=== PATIENT | male | born 1975 | race Caucasian/White ===

== ENCOUNTER 2016-12-05 15:12 | Emergency (ER) | payer SELFPAY ==
[~2016-12-05] VITALS: Wt 75.7 kg
[~2016-12-05 15:12] MED LIST: ATARAX,VISTARIL50 MG PO; BENADRYL ALLERG25 M5 PO; CARBIDOPA/LEVOD1 TA1 PO; DAYPRO600 M1 PO; FLEXERIL10 MG PO; FLEXERIL5 MG PO; LORTAB 10/500 51 TA1 PO; MEDROL DOSEPAK4 MG PO; MOTRIN800 MG PO; NKHM; PEPCID40 MG PO; PREDNICOT20 MG PO; PREDNISONE10 MG PO; TRAMADOL HCL50 MG PO; VICODIN 5/500 505 MG PO; VICODIN 500 MG-1 TAB PO; VICODIN ES 7501 TAB PO; VICOPROFEN 7.51 TA1 PO; VOLTAREN50 M1 PO; VOLTAREN75 MG PO; ZOFRAN 4 MG ED2 TAB PO
[2016-12-05 16:02] LABS: BASO # 0.1 10*3/uL (0.0-0.1); BASO % 0.5 % (0.0-1.0); EOS # 0.2 10*3/uL (0.0-0.4); EOS % 1.5 % (1.0-4.0); HEMATOCRIT 45.7 % (42.0-52.0); HEMOGLOBIN 15.2 g/dl (14.0-18.0); IG # 0.1 10*3/uL (0.0-0.1); LYMPH # 2.5 10*3/uL (1.3-4.4); LYMPH % 16.1 % (27.0-41.0); MEAN CELL VOLUME 87.4 fl (80.0-94.0); MEAN CORPUSCULAR HGB 29.1 pg (27.0-31.0); MEAN CORPUSCULAR HGB CONC 33.3 g/dl (33.0-37.0); MEAN PLATELET VOLUME 9.7 fl (9.6-12.3); MONO # 1.5 10*3/uL (0.1-1.0); MONO % 9.7 % (3.0-9.0); NEUT % 71.9 % (47.0-73.0); PLATELET COUNT AUTOMATED 314 10*3/uL (130-400); RED BLOOD COUNT 5.23 10*6/uL (4.50-5.90); RED CELL DISTRI WIDTH 12.9 % (0-14.5); WHITE BLOOD COUNT 15.3 10*3/uL (4.8-10.8)
[2016-12-05 16:20] LABS: ALBUMIN 4.2 gm/dl (3.1-4.5); ALKALINE PHOSPHATASE 71 U/L (45-117); BILIRUBIN, TOTAL 0.4 mg/dl (0.2-1.0); BUN 28 mg/dl (7-24); CARBON DIOXIDE 30 mmol/L (21-32); CHLORIDE 102 mmol/L (98-107); EST GLOM FILT AFRICAN AMERICAN > 60 ml/min; GLUCOSE 85 mg/dL (65-99); POTASSIUM 4.3 mmol/L (3.5-5.1); SGOT/AST 34 IU/L (3-35); SGPT/ALT 27 U/L (12-78); SODIUM 137 mmol/L (136-145); TOTAL PROTEIN 7.7 gm/dL (6.4-8.2)
[2016-12-05 16:53] LABS: BILIRUBIN NEGATIVE (NEGATIVE); BLOOD NEGATIVE (NEGATIVE); CLARITY CLEAR (CLEAR); COLOR YELLOW (YELLOW); GLUCOSE NEGATIVE (NEGATIVE); KETONE NEGATIVE (NEGATIVE); LEUKO ESTERASE NEGATIVE (NEGATIVE); NITRITE NEGATIVE (NEGATIVE); PROTEIN NEGATIVE (NEGATIVE); UROBILINOGEN 0.2 E.U./dl (0.2-1.0)
[2016-12-05 17:01] LABS: URINE AMPHETAMINES < 1000 (1000ng/ml); URINE BARBITURATES < 200 (200ng/ml); URINE COCAINE > 300 (300ng/ml)
[2016-12-05 17:02] LABS: EPITHELIAL CELLS 0-2; RBC 0-2 rbc/hpf (0-2); URINE REFLEX COMMENT NO (NO); WBC 0-2 wbc/hpf (0-5)
[2016-12-05] MEDS ORDERED: CYCLOBENZAPRINE10 MG PO (18:03)
[2016-12-05] MEDS ORDERED: KETOROLAC10 MG PO (18:03)
[2016-12-06] MEDS ORDERED: Orphenadrine C100 MG PO (06:06)
[2016-12-06] MEDS ORDERED: PERCOCET 5-3251 EACH PO (06:06)
== END 2016-12-05 18:01 | disposition home or self-care (01) ==
LOC: ED 15:12
PROVIDERS: Physician Assistant
DX: M54.12 Radiculopathy, cervical region (principal); Z88.0 Allergy status to penicillin; Z88.8 Allergy status to other drugs, medicaments and biological substances

== ENCOUNTER 2016-12-06 04:22 | Emergency (ER) | payer MEDICAID ==
[~2016-12-06] VITALS: Ht 180.3 cm; Wt 77.1 kg
[~2016-12-06 04:22] MED LIST changes: +CYCLOBENZAPRINE10 MG PO; +KETOROLAC10 MG PO
[2016-12-06] MEDS ORDERED: Orphenadrine C100 MG PO (06:06)
[2016-12-06] MEDS ORDERED: PERCOCET 5-3251 EACH PO (06:06)
== END 2016-12-06 06:26 | disposition home or self-care (01) ==
LOC: ED 04:22
DX: M54.12 Radiculopathy, cervical region (principal); F14.10 Cocaine abuse, uncomplicated; F12.10 Cannabis abuse, uncomplicated; F11.10 Opioid abuse, uncomplicated; Z88.0 Allergy status to penicillin; Z88.8 Allergy status to other drugs, medicaments and biological substances

== ENCOUNTER 2016-12-12 09:24 | Emergency (ER) | payer MEDICAID ==
[~2016-12-12 09:24] MED LIST changes: +Orphenadrine C100 MG PO; +PERCOCET 5-3251 EACH PO
[2016-12-12 10:03] LABS: BASO % 0.1 % (0.0-1.0); HEMATOCRIT 45.5 % (42.0-52.0); HEMOGLOBIN 15.7 g/dl (14.0-18.0); LYMPH # 1.2 10*3/uL (1.3-4.4); LYMPH % 8.5 % (27.0-41.0); MEAN CORPUSCULAR HGB 29.3 pg (27.0-31.0); MEAN CORPUSCULAR HGB CONC 34.5 g/dl (33.0-37.0); MEAN PLATELET VOLUME 9.3 fl (9.6-12.3); MONO # 0.7 10*3/uL (0.1-1.0); MONO % 5.1 % (3.0-9.0); NEUT # 12.4 10*3/uL (2.3-7.9); NEUT % 85.6 % (47.0-73.0); PLATELET COUNT AUTOMATED 396 10*3/uL (130-400); RED BLOOD COUNT 5.35 10*6/uL (4.50-5.90); RED CELL DISTRI WIDTH 12.3 % (0-14.5); WHITE BLOOD COUNT 14.4 10*3/uL (4.8-10.8)
[2016-12-12 10:13] LABS: BUN 26 mg/dl (7-24); CHLORIDE 102 mmol/L (98-107); CREATININE 1.09 mg/dL (0.70-1.30); POTASSIUM 4.6 mmol/L (3.5-5.1); SODIUM 140 mmol/L (136-145)
[2016-12-12 10:55] LABS: URINE AMPHETAMINES < 1000 (1000ng/ml); URINE BARBITURATES < 200 (200ng/ml); URINE BENZODIAZEPINES < 200 (200ng/ml); URINE CANNABINOIDS (THC) < 50 (50ng/ml); URINE COCAINE < 300 (300ng/ml); URINE METHADONE < 300 (300ng/ml); URINE OPIATES < 300 (300ng/ml)
[2016-12-12 10:59] LABS: URINE PHENCYCLIDINE < 25 (25ng/ml)
[2016-12-12] MEDS ORDERED: NEURONTIN300 MG PO (13:50)
== END 2016-12-12 14:47 | disposition home or self-care (01) ==
LOC: ED 09:24
PROVIDERS: Emergency Medicine
DX: M50.222 Other cervical disc displacement at C5-C6 level (principal); G06.1 Intraspinal abscess and granuloma; M54.12 Radiculopathy, cervical region; F19.10 Other psychoactive substance abuse, uncomplicated; R63.0 Anorexia; M54.5 Low back pain; F11.10 Opioid abuse, uncomplicated; F12.10 Cannabis abuse, uncomplicated; F17.200 Nicotine dependence, unspecified, uncomplicated; Z88.0 Allergy status to penicillin; Z88.8 Allergy status to other drugs, medicaments and biological substances

== ENCOUNTER 2016-12-26 22:36 | Emergency (ER) | payer MEDICAID ==
[~2016-12-26] VITALS: Wt 61.2 kg
[~2016-12-26 22:36] MED LIST changes: +NEURONTIN300 MG PO
[2016-12-26] MEDS ORDERED: PREDNISONE10 MG PO (22:56)
[2016-12-26] MEDS ORDERED: VISTARIL50 MG PO (22:56)
== END 2016-12-26 23:20 | disposition home or self-care (01) ==
LOC: ED 22:36
DX: M54.12 Radiculopathy, cervical region (principal); F41.9 Anxiety disorder, unspecified; G47.00 Insomnia, unspecified; Z88.0 Allergy status to penicillin; Z88.8 Allergy status to other drugs, medicaments and biological substances

== ENCOUNTER 2019-05-03 14:43 | Inpatient (IN) | payer OTHER, MEDICAID ==
[~2019-05-03] VITALS: Ht 182.8 cm; Wt 74.1 kg
[~2019-05-03 14:43] MED LIST changes: +VISTARIL50 MG PO
--- NOTE | 2019-05-03 15:58 | NUR ---
PATIENT MEETS [facility]. CINA=[id number]. PATIENT IS UNDECIDED AT THIS TIME. PATIENT IS INTERESTED IN RESIDENTIAL TREATMENT. IN STAFF PROVIDED PATIENT WITH REFERRAL OPTIONS.IN STAFF WILL FOLLOW BACK UP WITH PATIENT. SIMON ONEAL B.A. RECORD LABEL INTERNSHIP
[2019-05-03 16:18] VITALS: BP 128/85
--- NOTE | 2019-05-03 16:18 | NUR ---
A 44, admitted to , under the services of RIC Stiles DO with a diagnosis of OPIATE WITHDRAWAL. Chief complaint is WITHDRAWAL S/S.. Patient arrived via ambulatory from [place]. Monitor applied. Initial assessment completed. Vital signs taken and recorded. RIC STILES DO notified of admission to the unit. Orders received. See assessment for past medical history, medications and allergies. Patient and/or family oriented to unit. [facility] visitation policy reviewed. Clothing/patient valuable form completed. MICHEL GOLDSMITH
[2019-05-03] MEDS ORDERED: BENADRYL ALLERG25 M5 PO (17:34)
--- NOTE | 2019-05-03 17:50 | NUR ---
DR PETERSEN NOTIFIED THAT PT MED REC IS UP TO DATE.
[2019-05-03 18:18] LABS: BASO # 0.1 10*3/uL (0.0-0.1); BASO % 0.6 % (0.0-1.0); EOS # 0.2 10*3/uL (0.0-0.4); EOS % 2.7 % (1.0-4.0); HEMATOCRIT 43.7 % (42.0-52.0); HEMOGLOBIN 14.5 g/dl (14.0-18.0); LYMPH # 2.1 10*3/uL (1.3-4.4); LYMPH % 27.8 % (27.0-41.0); MEAN CELL VOLUME 90.9 fl (80.0-94.0); MEAN CORPUSCULAR HGB 30.1 pg (27.0-31.0); MEAN CORPUSCULAR HGB CONC 33.2 g/dl (33.0-37.0); MEAN PLATELET VOLUME 9.5 fl (9.6-12.3); MONO # 0.4 10*3/uL (0.1-1.0); MONO % 5.6 % (3.0-9.0); NEUT # 4.8 10*3/uL (2.3-7.9); NEUT % 62.9 % (47.0-73.0); PLATELET COUNT AUTOMATED 271 10*3/uL (130-400); RED BLOOD COUNT 4.81 10*6/uL (4.50-5.90); RED CELL DISTRI WIDTH 12.3 % (0-14.5); WHITE BLOOD COUNT 7.7 10*3/uL (4.8-10.8)
[2019-05-03 18:19] LABS: BILIRUBIN NEGATIVE (NEGATIVE); BLOOD NEGATIVE (NEGATIVE); CLARITY CLEAR (CLEAR); COLOR YELLOW (YELLOW); GLUCOSE NEGATIVE (NEGATIVE); KETONE NEGATIVE (NEGATIVE); LEUKO ESTERASE NEGATIVE (NEGATIVE); NITRITE NEGATIVE (NEGATIVE); PH 5.5 (5.0-9.0); SPECIFIC GRAVITY >= 1.030 (1.005-1.030); UROBILINOGEN 0.2 E.U./dl (0.2-1.0)
[2019-05-03 18:27] LABS: URINE AMPHETAMINES < 1000 (1000ng/ml); URINE BARBITURATES < 200 (200ng/ml); URINE BENZODIAZEPINES < 200 (200ng/ml); URINE CANNABINOIDS (THC) < 50 (50ng/ml); URINE COCAINE > 300 (300ng/ml); URINE METHADONE < 300 (300ng/ml); URINE OPIATES > 300 (300ng/ml)
[2019-05-03 18:28] LABS: INTERNATIONAL NORM RATIO 0.9 (2.0-3.5)
[2019-05-03 18:28] LABS: URINE PHENCYCLIDINE < 25 (25ng/ml)
[2019-05-03 18:37] LABS: ALBUMIN 3.9 gm/dl (3.1-4.5); ALKALINE PHOSPHATASE 63 U/L (45-117); BUN 13 mg/dl (7-24); CHLORIDE 108 mmol/L (98-107); CREATININE 1.08 mg/dL (0.70-1.30); POTASSIUM 4.2 mmol/L (3.5-5.1); SGOT/AST 19 IU/L (3-35); SGPT/ALT 21 U/L (12-78); SODIUM 141 mmol/L (136-145)
[2019-05-03 18:40] LABS: ETHYL ALCOHOL < 3.0 mg/dl (<3)
--- NOTE | 2019-05-03 20:32 | NUR ---
PATIENT REQUESTING MEDICATION FOR MUSCLE ACHES, CRAMPING, AND ANXIETY. REQUIP, ROBAXIN, AND VISTARIL ADMINISTERED PRESCRIBED. WILL MONITOR FOR EFFECTIVENESS.
--- NOTE | 2019-05-03 21:32 | NUR ---
PATIENT RESTING WITH EYES CLOSED. RESPIRATIONS EASY AND UNLABORED. CALL LIGHT IN REACH. WILL MONITOR.
[2019-05-04] VITALS: BP 128/85
--- NOTE | 2019-05-04 | NUR ---
PATIENT REQUESTING MEDICATION FOR SLEEP. TRAZADONE ADMINISTEREDAS PRESCRIBED.WILL MONITOR FOR EFFECTIVENESS.
--- NOTE | 2019-05-04 01:00 | NUR ---
PATIENT RESTING WITH EYES CLOSED AT THIS TIME. RESPIRATION EASY AND UNLABORED. CALL LIGHT IN REACH. WILL MONITOR.
--- NOTE | 2019-05-04 04:47 | NUR ---
PATIENT MEDICATED WITH ROBAXIN FOR COMPLAINTS OF MUSCLE CRAMPS. WILL MONITOR FOR EFFECTIVENESS.
--- NOTE | 2019-05-04 05:57 | NUR ---
PATIENT RESTING WITH EYES CLOSED. RESPIRATIONS EASY AND UNLABORED. CALL LIGHT IN REACH. WILL MONITOR.
[2019-05-04 08:00] VITALS: BP 121/84
[2019-05-04 12:00] VITALS: BP 119/77
[2019-05-04 16:00] VITALS: BP 123/63
[2019-05-04 20:00] VITALS: BP 115/77
--- NOTE | 2019-05-04 21:44 | NUR ---
PATIENT REQUESTING MEDICATION FOR ANXIETY, MUSCLE ACHES, RESTLESSNESS, AND SLEEP. LIBRIUM, MOTRIN, REQUIP, ROBAXIN, AND TRAZODONE PRESCRIBED. WILL MONITOR FOR EFFECTIVENESS.
--- NOTE | 2019-05-04 22:43 | NUR ---
PATIENT RESTING WITH EYES CLOSED AT THIS TIME. RESPIRATIONS EASY AND UNLABORED. CALL LIGHT IN REACH. WILL MONITOR.
[2019-05-05] VITALS: BP 126/64
--- NOTE | 2019-05-05 01:15 | NUR ---
PATIENT REQUESTING MORE MEDICATION TO HELP HIM SLEEP. TRAZODONE ADMINISTERED PRESCRIBED. WILL MONITOR FOR EFFECTIVENESS.
--- NOTE | 2019-05-05 02:15 | NUR ---
PATIENT RESTING WITH EYES CLOSED AT THIS TIME. RESPIRATIONS EASY AND UNLABORED. CALL LIGHT IN REACH. WILL MONITOR.
--- NOTE | 2019-05-05 06:05 | NUR ---
24 HR chart check completed.
[2019-05-05 08:00] VITALS: BP 97/46
--- NOTE | 2019-05-05 10:00 | NUR ---
PATIENT REQUESTING MEDICATION FOR ANXIETY AND GENERAL ACHES. LIBRIUM AND MOTRIN ADMINISTERED PRESCRIBED. WILL MONITOR FOR EFFECTIVENESS.
--- NOTE | 2019-05-05 12:30 | NUR ---
Patient displaying withdrawal symptoms, including: irritability, anxiousness, restlessness and agitation. PRN medications provided, SEE EMAR. Will continue to monitor medication effectiveness.
--- NOTE | 2019-05-05 14:00 | NUR ---
Patient resting. Responding to scheduled medications with fewer complaints of pain and anxiety.
[2019-05-05 16:00] VITALS: BP 107/57
--- NOTE | 2019-05-05 19:33 | NUR ---
24 HR chart check completed.
[2019-05-05 20:00] VITALS: BP 129/78
--- NOTE | 2019-05-05 21:40 | NUR ---
PATIENT REQUESTING MEDICATION FOR ANXIETY, GENERAL ACHES, MUSCLE SPASMS, AND SLEEP. LIBRIUM, MOTRIN, ROBAXIN, AND TRAZODONE ADMINISTERED PRESCRIBED. WILL MONITOR FOR EFFECTIVENESS.
--- NOTE | 2019-05-05 22:40 | NUR ---
PATIENT LAYING IN BED WATCHING TV AT TIME. STATES THAT ANXIETY IS A LITTLE BETTER AT THIS TIME AND MUSCLE ACHES ARE BETTER. WILL MONITOR.
--- NOTE | 2019-05-05 23:00 | NUR ---
ASSUMED CARE FOR THIS PT AT THIS TIME. PT RESTING QUIETLY IN BED. NO S/S OF DISTRESS NOTED. CALL LIGHT IN REACH.
[2019-05-06] VITALS: BP 112/68
--- NOTE | 2019-05-06 06:17 | NUR ---
24 HR chart check completed.
[2019-05-06 06:23] LABS: BASO # 0.1 10*3/uL (0.0-0.1); BASO % 0.9 % (0.0-1.0); EOS # 0.6 10*3/uL (0.0-0.4); EOS % 8.6 % (1.0-4.0); HEMATOCRIT 43.2 % (42.0-52.0); HEMOGLOBIN 13.9 g/dl (14.0-18.0); LYMPH # 2.5 10*3/uL (1.3-4.4); LYMPH % 38.9 % (27.0-41.0); MEAN CELL VOLUME 92.1 fl (80.0-94.0); MEAN CORPUSCULAR HGB 29.6 pg (27.0-31.0); MEAN CORPUSCULAR HGB CONC 32.2 g/dl (33.0-37.0); MEAN PLATELET VOLUME 9.6 fl (9.6-12.3); MONO # 0.5 10*3/uL (0.1-1.0); MONO % 7.5 % (3.0-9.0); NEUT # 2.8 10*3/uL (2.3-7.9); NEUT % 43.8 % (47.0-73.0); PLATELET COUNT AUTOMATED 259 10*3/uL (130-400); RED BLOOD COUNT 4.69 10*6/uL (4.50-5.90); RED CELL DISTRI WIDTH 12.4 % (0-14.5); WHITE BLOOD COUNT 6.4 10*3/uL (4.8-10.8)
[2019-05-06 06:41] LABS: CREATININE 1.24 mg/dL (0.70-1.30)
[2019-05-06 08:00] VITALS: BP 110/76
[2019-05-06] MEDS ORDERED: ZOFRAN 4 MG ED2 TAB PO (10:15)
[2019-05-06] MEDS ORDERED: ATARAX,VISTARIL50 MG PO (10:15)
--- NOTE | 2019-05-06 11:03 | NUR ---
Patient discharged in stable condition, referral letter provided to patient with specific instructions and appointment for ongoing treatment. Patient verbalizes understanding of discharge plan.
== END 2019-05-06 11:03 | disposition home or self-care (01) | DRG 897 ==
LOC: 4E 14:43 → 5E 15:23
PROVIDERS: Student in an Organized Health Care Education/Training Program; ADMIT Emergency Medicine
DX: F11.23 Opioid dependence with withdrawal (principal); F12.10 Cannabis abuse, uncomplicated; F90.9 Attention-deficit hyperactivity disorder, unspecified type; F14.23 Cocaine dependence with withdrawal; M50.122 Cervical disc disorder at C5-C6 level with radiculopathy; F17.220 Nicotine dependence, chewing tobacco, uncomplicated; F31.9 Bipolar disorder, unspecified; E87.8 Other disorders of electrolyte and fluid balance, not elsewhere classified; G47.00 Insomnia, unspecified; F41.9 Anxiety disorder, unspecified; Z71.6 Tobacco abuse counseling; Z81.3 Family history of other psychoactive substance abuse and dependence; Z88.0 Allergy status to penicillin

== ENCOUNTER → 2019-06-20 | Outpatient (CLI) | payer OTHER | END | disposition home or self-care (01) | LOC: US 09:30 | DX: K40.31 Unilateral inguinal hernia, with obstruction, without gangrene, recurrent (principal) ==

== ENCOUNTER → 2019-11-27 | Outpatient (CLI) | payer OTHER | END | disposition home or self-care (01) | LOC: CARD 11:19 | DX: F11.20 Opioid dependence, uncomplicated (principal) ==

== ENCOUNTER 2020-02-20 14:11 | Emergency (ER) | payer OTHER ==
[~2020-02-20] VITALS: Ht 182.8 cm; Wt 95.3 kg
[2020-02-20 14:57] LABS: BASO # 0.1 10*3/uL (0.0-0.1); BASO % 0.6 % (0.0-1.0); EOS # 0.7 10*3/uL (0.0-0.4); EOS % 6.4 % (1.0-4.0); HEMATOCRIT 43.5 % (42.0-52.0); LYMPH # 1.5 10*3/uL (1.3-4.4); LYMPH % 14.3 % (27.0-41.0); MEAN CELL VOLUME 84.6 fl (80.0-94.0); MEAN PLATELET VOLUME 9.4 fl (9.6-12.3); MONO # 0.6 10*3/uL (0.1-1.0); MONO % 5.8 % (3.0-9.0); NEUT # 7.6 10*3/uL (2.3-7.9); NEUT % 71.9 % (47.0-73.0); PLATELET COUNT AUTOMATED 299 10*3/uL (130-400); RED BLOOD COUNT 5.14 10*6/uL (4.50-5.90); RED CELL DISTRI WIDTH 14.5 % (0-14.5); WHITE BLOOD COUNT 10.5 10*3/uL (4.8-10.8)
[2020-02-20 15:11] LABS: ALBUMIN 4.1 gm/dl (3.1-4.5); ALKALINE PHOSPHATASE 99 U/L (45-117); BUN 17 mg/dl (7-24); CHLORIDE 112 mmol/L (98-107); CREATININE 1.18 mg/dL (0.70-1.30); POTASSIUM 4.3 mmol/L (3.5-5.1); SGOT/AST 20 IU/L (3-35); SGPT/ALT 26 U/L (12-78); SODIUM 142 mmol/L (136-145); TOTAL PROTEIN 7.6 gm/dL (6.4-8.2)
== END 2020-02-20 18:30 | disposition home or self-care (01) ==
LOC: ED 14:11
PROVIDERS: Nurse Practitioner Family
DX: T65.91XA Toxic effect of unspecified substance, accidental (unintentional), initial encounter (principal); Z88.0 Allergy status to penicillin; Z79.899 Other long term (current) drug therapy; Y92.89 Other specified places as the place of occurrence of the external cause

== ENCOUNTER 2020-02-20 20:15 | Emergency (ER) | payer OTHER ==
[~2020-02-20] VITALS: Ht 182.8 cm; Wt 95.3 kg
== END 2020-02-20 21:30 ==
LOC: ED 20:15
DX: Z04.89 Encounter for examination and observation for other specified reasons (principal); Z53.21 Procedure and treatment not carried out due to patient leaving prior to being seen by health care provider

== ENCOUNTER 2020-05-05 11:13 | Emergency (ER) | payer OTHER ==
[~2020-05-05] VITALS: Ht 182.8 cm; Wt 95.3 kg
[2020-05-05] MEDS ORDERED: CYCLOBENZAPRINE10 MG PO (12:20)
[2020-05-05] MEDS ORDERED: NEURONTIN300 MG PO (12:20)
[2020-05-05] MEDS ORDERED: Motrin,Rufen800 MG PO (12:20)
== END 2020-05-05 12:29 | disposition home or self-care (01) ==
LOC: ED 11:13
DX: S13.9XXA Sprain of joints and ligaments of unspecified parts of neck, initial encounter (principal); M54.41 Lumbago with sciatica, right side; Z88.0 Allergy status to penicillin; X58.XXXA Exposure to other specified factors, initial encounter; Y93.89 Activity, other specified; Y92.89 Other specified places as the place of occurrence of the external cause; Y99.8 Other external cause status

== ENCOUNTER 2020-06-22 11:50 | Inpatient (IN) | payer OTHER ==
[~2020-06-22] VITALS: Ht 195.5 cm; Wt 90.2 kg
[~2020-06-22 11:50] MED LIST changes: +Motrin,Rufen800 MG PO
[2020-06-22 11:58] VITALS: BP 143/88
[2020-06-22 12:36] LABS: HEMATOCRIT 46.2 % (42.0-52.0); MEAN CELL VOLUME 86.2 fl (80.0-94.0); MEAN CORPUSCULAR HGB 27.6 pg (27.0-31.0); MEAN PLATELET VOLUME 9.4 fl (9.6-12.3); PLATELET COUNT AUTOMATED 423 10*3/uL (130-400); RED BLOOD COUNT 5.36 10*6/uL (4.50-5.90); RED CELL DISTRI WIDTH 13.6 % (0-14.5); WHITE BLOOD COUNT 18.5 10*3/uL (4.8-10.8)
[2020-06-22 12:59] LABS: TOTAL CELLS COUNTED 100 #CELLS
[2020-06-22 13:00] LABS: PLATELET SUFFICIENCY HIGH (NORMAL)
[2020-06-22 13:05] LABS: ALBUMIN 3.4 gm/dl (3.1-4.5); ALKALINE PHOSPHATASE 131 U/L (45-117); BUN 13 mg/dl (7-24); CHLORIDE 105 mmol/L (98-107); CREATININE 1.09 mg/dL (0.70-1.30); POTASSIUM 3.3 mmol/L (3.5-5.1); SGOT/AST 38 IU/L (3-35); SGPT/ALT 23 U/L (12-78); SODIUM 140 mmol/L (136-145); TOTAL PROTEIN 8.4 gm/dL (6.4-8.2)
[2020-06-22 15:30] VITALS: BP 133/89
[2020-06-22 16:00] VITALS: BP 134/78; BP 136/80
[2020-06-22 20:00] VITALS: BP 117/100
[2020-06-23] VITALS: BP 116/70
[2020-06-23 07:02] LABS: BASO % 0.2 % (0.0-1.0); EOS # 0.2 10*3/uL (0.0-0.4); EOS % 1.5 % (1.0-4.0); LYMPH # 0.9 10*3/uL (1.3-4.4); MEAN CELL VOLUME 86.6 fl (80.0-94.0); MEAN CORPUSCULAR HGB 27.9 pg (27.0-31.0); MEAN CORPUSCULAR HGB CONC 32.3 g/dl (33.0-37.0); MEAN PLATELET VOLUME 9.7 fl (9.6-12.3); MONO # 0.3 10*3/uL (0.1-1.0); NEUT # 14.1 10*3/uL (2.3-7.9); NEUT % 89.8 % (47.0-73.0); PLATELET COUNT AUTOMATED 370 10*3/uL (130-400); RED BLOOD COUNT 4.62 10*6/uL (4.50-5.90); RED CELL DISTRI WIDTH 13.8 % (0-14.5); WHITE BLOOD COUNT 15.7 10*3/uL (4.8-10.8)
[2020-06-23 07:34] LABS: CHLORIDE 107 mmol/L (98-107); POTASSIUM 4.1 mmol/L (3.5-5.1); SODIUM 138 mmol/L (136-145)
[2020-06-23 07:52] LABS: ALBUMIN 2.6 gm/dl (3.1-4.5); ALKALINE PHOSPHATASE 115 U/L (45-117); BUN 10 mg/dl (7-24); CHOLESTEROL 157 mg/dL (<200); CREATININE 0.86 mg/dL (0.70-1.30); FREE T4 1.13 ng/dl (0.76-1.46); HDL CHOLESTEROL 46 mg/dl (40-60); LDL CHOLESTEROL 93 mg/dL (9-159); SGOT/AST 30 IU/L (3-35); SGPT/ALT 20 U/L (12-78); THYROID STIM HORMONE (HS) 0.099 uIU/ml (0.358-4.75); TRIGLYCERIDES 91 mg/dl (<150); VLDL CHOLESTEROL 18 mg/dL (6-40)
[2020-06-23 07:56] LABS: VITAMIN D, 25-HYDROXY 32.4 ng/mL (30-100)
[2020-06-23 08:00] VITALS: BP 135/86
[2020-06-23] MEDS ORDERED: 'CLONIDINE0.1 MG PO (09:11)
[2020-06-23] MEDS ORDERED: ABILIFY20 MG PO (09:12)
[2020-06-23] MEDS ORDERED: BUSPAR5 MG PO (09:12)
[2020-06-23 12:00] VITALS: BP 124/78
[2020-06-23 16:00] VITALS: BP 138/85
[2020-06-23 20:00] VITALS: BP 108/56
[2020-06-24 08:00] VITALS: BP 134/50
[2020-06-24] MEDS ORDERED: MUCUS RELIEF600 MG PO (11:52)
[2020-06-24] MEDS ORDERED: ZITHROMAX250 MG PO (11:52)
== END 2020-06-24 12:50 | disposition home or self-care (01) | DRG 871 ==
LOC: ED 11:50 → EDHOLD 13:15 → 5E 13:15 → EDHOLD 14:22 → 5E 14:47
PROVIDERS: Internal Medicine; Registered Nurse; ADMIT Family Medicine; ATTEND Family Medicine
DX: A41.9 Sepsis, unspecified organism (principal); J18.9 Pneumonia, unspecified organism; E87.6 Hypokalemia; F31.9 Bipolar disorder, unspecified; F90.9 Attention-deficit hyperactivity disorder, unspecified type; K08.409 Partial loss of teeth, unspecified cause, unspecified class; F12.10 Cannabis abuse, uncomplicated; F41.9 Anxiety disorder, unspecified; E83.39 Other disorders of phosphorus metabolism; E78.5 Hyperlipidemia, unspecified; R65.20 Severe sepsis without septic shock; F17.220 Nicotine dependence, chewing tobacco, uncomplicated; Z88.0 Allergy status to penicillin; Z81.1 Family history of alcohol abuse and dependence; Z81.3 Family history of other psychoactive substance abuse and dependence; Z71.6 Tobacco abuse counseling

== ENCOUNTER 2020-09-17 21:23 | Emergency (ER) | payer OTHER ==
[~2020-09-17] VITALS: Ht 182.8 cm; Wt 86.2 kg
[~2020-09-17 21:23] MED LIST changes: +'CLONIDINE0.1 MG PO; +ABILIFY20 MG PO; +BUSPAR5 MG PO; +MUCUS RELIEF600 MG PO; +ZITHROMAX250 MG PO
[2020-09-17 21:42] LABS: BASO # 0.1 10*3/uL (0.0-0.1); BASO % 0.8 % (0.0-1.0); EOS # 0.1 10*3/uL (0.0-0.4); EOS % 0.9 % (1.0-4.0); HEMATOCRIT 46.9 % (42.0-52.0); LYMPH # 1.6 10*3/uL (1.3-4.4); LYMPH % 19.9 % (27.0-41.0); MEAN CELL VOLUME 88.5 fl (80.0-94.0); MEAN CORPUSCULAR HGB 28.3 pg (27.0-31.0); MEAN PLATELET VOLUME 9.4 fl (9.6-12.3); MONO # 0.6 10*3/uL (0.1-1.0); MONO % 7.8 % (3.0-9.0); NEUT # 5.6 10*3/uL (2.3-7.9); NEUT % 70.3 % (47.0-73.0); PLATELET COUNT AUTOMATED 343 10*3/uL (130-400); RED CELL DISTRI WIDTH 14.4 % (0-14.5); WHITE BLOOD COUNT 7.9 10*3/uL (4.8-10.8)
[2020-09-17 21:59] LABS: ALBUMIN 3.9 gm/dl (3.1-4.5); ALKALINE PHOSPHATASE 76 U/L (45-117); BUN 9 mg/dl (7-24); CHLORIDE 108 mmol/L (98-107); CREATININE 1.45 mg/dL (0.70-1.30); POTASSIUM 3.4 mmol/L (3.5-5.1); SGOT/AST 13 IU/L (3-35); SGPT/ALT 20 U/L (12-78); SODIUM 141 mmol/L (136-145); TOTAL PROTEIN 7.7 gm/dL (6.4-8.2)
[2020-09-17] MEDS ORDERED: NEURONTIN300 MG PO (21:59)
[2020-09-17] MEDS ORDERED: TRAZODONE100 MG PO (22:02)
[2020-09-17 22:33] LABS: URINE AMPHETAMINES < 1000 (1000ng/ml); URINE BARBITURATES < 200 (200ng/ml); URINE BENZODIAZEPINES < 200 (200ng/ml); URINE CANNABINOIDS (THC) > 50 (50ng/ml); URINE COCAINE > 300 (300ng/ml); URINE METHADONE < 300 (300ng/ml); URINE OPIATES < 300 (300ng/ml)
[2020-09-17 22:41] LABS: URINE PHENCYCLIDINE < 25 (25ng/ml)
== END 2020-09-18 00:04 | disposition home or self-care (01) ==
LOC: ED 21:23
PROVIDERS: Internal Medicine
DX: G47.00 Insomnia, unspecified (principal); F14.90 Cocaine use, unspecified, uncomplicated; E87.6 Hypokalemia; F12.90 Cannabis use, unspecified, uncomplicated; N18.31 Chronic kidney disease, stage 3a; Z88.0 Allergy status to penicillin; Z79.899 Other long term (current) drug therapy; Z98.890 Other specified postprocedural states

== ENCOUNTER 2020-12-14 09:58 | Emergency (ER) | payer OTHER ==
[~2020-12-14] VITALS: Ht 182.8 cm; Wt 79.4 kg
[~2020-12-14 09:58] MED LIST changes: +TRAZODONE100 MG PO
[2020-12-14] MEDS ORDERED: VISTARIL25 MG PO (10:30)
== END 2020-12-14 10:50 | disposition home or self-care (01) ==
LOC: ED 09:58
DX: F41.9 Anxiety disorder, unspecified (principal); Z88.0 Allergy status to penicillin; Z79.899 Other long term (current) drug therapy

== ENCOUNTER 2021-05-16 13:55 | Emergency (ER) | payer OTHER ==
[~2021-05-16] VITALS: Ht 180.3 cm; Wt 86.2 kg
[~2021-05-16 13:55] MED LIST changes: +VISTARIL25 MG PO
[2021-05-16 14:51] LABS: BILIRUBIN Negative (Negative); BLOOD Negative (Negative); CLARITY Clear (Clear); COLOR Yellow (Yellow); GLUCOSE Negative (Negative); KETONE Negative (Negative); LEUKO ESTERASE Negative (Negative); NITRITE Negative (Negative); SPECIFIC GRAVITY 1.025 (1.001-1.030); UROBILINOGEN 0.2 E.U./dl (0.0-1.0)
[2021-05-16 14:55] LABS: URINE AMPHETAMINES < 1000 (1000ng/ml); URINE BARBITURATES < 200 (200ng/ml); URINE BENZODIAZEPINES < 200 (200ng/ml); URINE CANNABINOIDS (THC) > 50 (50ng/ml); URINE COCAINE < 300 (300ng/ml); URINE METHADONE > 300 (300ng/ml); URINE OPIATES < 300 (300ng/ml)
[2021-05-16 15:00] LABS: BACTERIA TRACE; EPITHELIAL CELLS 0-2; MUCOUS TRACE; RBC 0-2 rbc/hpf (0-2); WBC 0-2 wbc/hpf (0-5)
[2021-05-16 15:01] LABS: URINE PHENCYCLIDINE < 25 (25ng/ml)
== END 2021-05-16 16:06 | disposition home or self-care (01) ==
LOC: ED 13:55
PROVIDERS: Emergency Medicine; Nurse Practitioner Family
DX: G89.29 Other chronic pain (principal); F15.90 Other stimulant use, unspecified, uncomplicated; Z98.890 Other specified postprocedural states; Z79.899 Other long term (current) drug therapy